=== PATIENT | male | born 1955 | race Caucasian/White ===

== ENCOUNTER 2016-10-07 09:53 | Emergency (ER) | payer MEDICARE, OTHER ==
[2016-10-07 10:08] VITALS: BP 135/86
[2016-10-07] MEDS ORDERED: Lidocaine 1% 50 ML MDV INJECT ONE (10:13)
[2016-10-07] MEDS ORDERED: Acetaminophen/HYDROcodone 325-5 MG Tab PO ONE (10:21)
[2016-10-07] MEDS ORDERED: Cephalexin 500 MG Cap PO ONE ×2 (10:46→12:33)
--- NOTE | 2016-10-07 10:56 | EDM.PDOC ---
ED HPI GENERAL MEDICAL PROBLEM - General Chief Complaint: Laceration Stated Complaint: LEFT MIDDLE FINGER LACERATION Time Seen by Provider: 10/07/16 10:11 Source of Information: Reports: Patient, RN Notes Reviewed - History of Present Illness INITIAL COMMENTS - FREE TEXT/NARRATIVE: 60-year-old male comes in with left finger injury. Working with some wire out in his garage and some how caught the tip of the finger with the wire with resultant quite severe flap laceration distal tip left middle finger. No other injury from this incident. To the best of his knowledge she is up-to-date with tetanus immunization. The wire Was clean. He does have a lot of pain associated with this injury. Of note patient is a cardiac transplant patient having received heart transplant about 7 years ago doing relatively well with that. he is on immunosuppressant therapy. Left Middle Hand Pain Score (Numeric/FACES): 8 - Related Data Allergies Allergy/AdvReac Type Severity Reaction Status Date / Time Sulfa (Sulfonamide Allergy unknown Verified 10/07/16 10:02 Antibiotics) Home Meds: Home Meds Aspirin [Ecotrin] 81 mg PO DAILY 09/14/14 [History] Calcium Carbonate [Calcium] PO BID 09/14/14 [History] Cholecalciferol (Vitamin D3) [Vitamin D3] PO DAILY 09/14/14 [History] Clotrimazole [Clotrimazole 1%] TOP BID 09/14/14 [History] Docusate Sodium 100 mg PO TID 09/14/14 [History] Gabapentin [Neurontin] 300 mg PO TID 09/14/14 [History] Lisinopril 5 mg PO DAILY 09/14/14 [History] Morphine 15 mg PO BID 09/14/14 [History] Multivit/Ophth Ared 1 cap PO BID 09/14/14 [History] Mycophenolate Sodium [Mycophenolic Acid] PO BID 09/14/14 [History] [place]-3/DHA/Epa/Fish Oil [Fish Oil] 1,000 mg PO TID 09/14/14 [History] Omeprazole 40 mg PO DAILY 09/14/14 [History] Pravastatin Sodium [Pravastatin (Pravachol)] 20 mg PO DAILY 09/14/14 [History] Sertraline HCl 100 mg PO DAILY 09/14/14 [History] Tacrolimus 2 mg PO BID 09/14/14 [History] Terbinafine HCl [Athlete's Foot] TOP BID 09/14/14 [History] Warfarin [Coumadin] 09/14/14 [History] amLODIPine Besylate [Amlodipine Besylate] PO DAILY 09/14/14 [History] hydrALAZINE HCl [Hydralazine HCl] 50 mg PO TID 09/14/14 [History] oxyCODONE HCl [Oxycodone HCl] 7.5 mg PO Q4H PRN 09/14/14 [History] Cephalexin 500 mg PO QID #20 capsule 10/07/16 [Rx] Mupirocin Oint [Bactroban Oint] 22 gm TOP TID #1 tube 10/07/16 [Rx] Past Medical History 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 Other Gastrointestinal History: Biliary Calculus, Benign neoplasm of Stomach, Colonic Polyps, Tubular Adenoma, Generalized Abdominal Pain, Other Genitourinary History: Impotence of organic origin, - Past Surgical History Other Cardiovascular Surgeries/Procedures: Cardiac Transplant 09/2009, Thromboendarterectomy, Social & Family History - Tobacco Use Smoking Status *Q: Never Smoker - Caffeine Use Caffeine Use: Reports: None - Recreational Drug Use Recreational Drug Use: No ED ROS GENERAL - Review of Systems Review Of Systems: See Below Constitutional: Reports: No Symptoms HEENT: Reports: No Symptoms Respiratory: Denies: Shortness of Breath Cardiovascular: Denies: Chest Pain GI/Abdominal: Denies: Abdominal Pain, Nausea, Vomiting Musculoskeletal: Reports: Other (Severe flap laceration distal left middle finger) ED EXAM, SKIN/RASH Exam: See Below General Appearance: Alert, Moderate Distress Head: Atraumatic Neck: Supple Respiratory/Chest: No Respiratory Distress Extremities: Other (2.5 cm flap laceration volar aspect distal left middle finger). No: Joint Swelling (, Tenderness or deformity) Neurological: Other (Sensation decreased to the distal flap, otherwise intact) ED SKIN PROCEDURES - Laceration/Wound Repair Left Middle Finger Lac/Wound length In cm: 2.5 Appearance: Other (Flap) Distal NVT: Other (Sensation is mildly decreased distal area of flap injury) Anesthetic Type: Local Local Anesthesia - Lidocaine (Xylocaine): 1% Plain Skin Prep: Chlorhexidine (Hibiciens), Saline Suture Size: 3-0 Suture Type: Nylon Course - Vital Signs Last Recorded V/S: Last Vital Signs Temp 98.0 F 10/07/16 10:02 Pulse 81 10/07/16 10:02 Resp 16 10/07/16 10:02 BP 135/86 10/07/16 10:02 Pulse Ox 95 10/07/16 10:02 - Orders/Labs/Meds Meds: Medications Discontinued Medications Generic Name Dose Route Start Last Admin Trade Name Lazaro PRN Reason Stop Dose Admin Hydrocodone Bitart/Acetaminophen 1 tab 10/07/16 10:21 10/07/16 10:27 [place] 325-5 Mg PO 10/07/16 10:22 1 tab ONETIME ONE Administration Cephalexin 500 mg 10/07/16 10:46 10/07/16 12:02 Keflex PO 10/07/16 10:47 500 mg ONETIME ONE Administration Cephalexin 500 mg 10/07/16 12:33 10/07/16 12:42 Keflex PO 10/07/16 12:34 500 mg ONETIME ONE Administration Lidocaine HCl 50 ml 10/07/16 10:13 10/07/16 10:28 Xylocaine 1% INJECT 10/07/16 10:14 50 ml ONETIME ONE Administration - Re-Assessments/Exams Free Text/Narrative Re-Assessment/Exam: 10/07/16 14:01 Patient was given a hydrocodone 08/01/24 for pain, that has helped him. Departure - Departure Time of Disposition: 11:20 Disposition: Home, Self-Care 01 Condition: Fair Clinical Impression: Finger laceration Qualifiers: Encounter type: initial encounter Finger: middle finger Damage to nail status: unspecified Foreign body presence: without foreign body Laterality: left Qualified Code(s): S61.213A - Laceration without foreign body of left middle finger without damage to nail, initial encounter - Discharge Information Prescriptions: Cephalexin 500 mg PO QID #20 capsule Mupirocin Oint [Bactroban Oint] 22 gm TOP TID #1 tube Instructions: Laceration Care, Adult Referrals: Preeti Quevedo DO [Primary Care Provider] - Forms: ED Department Discharge Additional Instructions: Laceration care instructions, stitches out in 9-10 days, there is no charge to have those taken out at our [facility] clinic, call [phone] for appointment. Cephalexin antibiotic 4 times daily for 5 days or until gone, have finger rechecked any sign of infection.
== END 2016-10-07 12:22 | disposition home or self-care (01) ==
LOC: JD.ED 09:53
DX: S61.213A Laceration without foreign body of left middle finger without damage to nail, initial encounter (principal); Z88.2 Allergy status to sulfonamides; Z79.82 Long term (current) use of aspirin; Z79.899 Other long term (current) drug therapy; W26.8XXA Contact with other sharp object(s), not elsewhere classified, initial encounter
CPT/HCPCS: 12001; 99283; A9270

== ENCOUNTER 2020-05-22 10:28 | Emergency (ER) | payer MEDICARE, OTHER ==
[2020-05-22] MEDS ORDERED: Sodium Chloride 0.9% 10 ML Syringe FLUSH PRN (10:38)
[2020-05-22 11:13] VITALS: PULSE 97
--- NOTE | 2020-05-22 11:25 | CT ---
CT cervical spine Technique: Multiple axial sections were obtained from above C1 inferiorly to the bottom of T3. Reconstructed coronal and sagittal images were obtained. Comparison: No prior cervical spine imaging is available. Findings: Mild disc space narrowing at C3-4 with prominent anterior osteophytes. Moderate disc space narrowing at C4-5 with anterior osteophytes. Moderate disc space narrowing at C5-6 with anterior osteophytes. Mild disc space narrowing C6-7 with anterior osteophytes. Anterior osteophytes are also noted at C2-3. Vertebral body heights are maintained. There is slight calcification noted within the posterior bulging disc at C3-4. Severe left-sided neural foraminal stenosis noted at C3-4 with mild to moderate right-sided neural foraminal stenosis. Moderate bilateral neural foraminal stenosis is noted at C4-5. Diffuse posterior disc bulge is noted causing central canal stenosis. Diffuse posterior disc bulge is noted at C5-6 causing mild central canal stenosis. Left neural foramina is patent. Mild to moderate right-sided neural foraminal stenosis is seen. Other neural foramina are patent. No fracture is appreciated. No abnormal subluxation is appreciated. Scattered degenerative apophyseal change is seen. Degenerative spurring is noted within the uncovertebral joints at C3-4, C4-5 and C5-6. Visualized lung apices are clear. Impression: 1. Degenerative change as noted above. 2. No acute fracture or abnormal subluxation is appreciated on CT study of the cervical spine. Diagnostic code #3
--- NOTE | 2020-05-22 11:26 | CT ---
Head CT Technique: Multiple axial sections through the brain were obtained. Intravenous contrast was not utilized. Reconstructed coronal and sagittal images were obtained. Comparison: No prior intracranial imaging is available. Findings: Soft tissue hematoma is seen within the scalp of the posterior right parietal region. Ventricles along with basal cisterns and sulci over the convexities are mildly prominent. Very minimal areas of diminished density is noted within the periventricular white matter and basal ganglia compatible with small vessel ischemic demyelination change. Atherosclerotic calcification is seen within the carotid siphon and vertebral vessels. There is no evidence of intracranial hemorrhage being seen. No midline shift or mass-effect is appreciated. Bone window settings were reviewed. The visualized mastoid sinuses and paranasal sinuses show nothing acute. Chronic appearing mucosal thickening is seen within the maxillary sinuses. No acute calvarial abnormality is appreciated. Impression: 1. Soft tissue hematoma within the posterior right parietal scalp. 2. Mild senescent change as noted above. Mild chronic mucosal thickening within the inferior maxillary sinuses. 3. No acute intracranial abnormality is appreciated. Diagnostic code #2
--- NOTE | 2020-05-22 11:28 | CR ---
Chest: Portable view of the chest was obtained. Comparison: Prior chest x-ray of 01/11/13. Heart is enlarged. Sternotomy is noted. Spinal fixation device is present. Left shoulder prosthesis is seen. Lung markings shows minimal congestion. No acute parenchymal change is seen. Slight chronic pleural thickening on the right side. Surgical clips are seen within the right axillary region. Impression: 1. Findings are suspicious for minimal CHF. 2. Other findings as noted above. No other acute abnormality is appreciated. Diagnostic code #3
--- NOTE | 2020-05-22 11:30 | CR ---
Pelvis: AP view of the pelvis was obtained. Comparison: Prior pelvis exam of 02/28/11. Bilateral hip prostheses are noted. Heterotopic bone is noted superior to both greater trochanters which appear chronic. Osteopenia is present. Vascular calcification is noted. No acute abnormality is appreciated. Impression: 1. Chronic findings as noted above. 2. Nothing acute is appreciated on the AP pelvis study. Diagnostic code #2
[2020-05-22 13:00] VITALS: BP 133/88
--- NOTE | 2020-05-22 13:04 | EDM.PDOC ---
ED HPI GENERAL MEDICAL PROBLEM - General Chief Complaint: Trauma Stated Complaint: [facility] Time Seen by Provider: 05/22/20 10:37 Source of Information: Reports: Patient, RN Notes Reviewed - History of Present Illness INITIAL COMMENTS - FREE TEXT/NARRATIVE: 64yr old male fell down a ladder off of the edge of a roof unto a deck. He was intending to get up on the roof of a home, he and the ladder slipped with he and the ladder going down. He believes he was up at a height of about 12 to 15 feet. He was tangled up in the ladder lying on steps of the deck when his came out to help him. No Loc. He did hit the back of his head. Mild Smith only. He has chronic neck and back discomfort and does have moderate neck discomfort. Mild low back pain but no worse than usual. Mild R hip pain. He has an interesting cardiac hx with hx of cardiac transplant about 10 1/2 yrs ago. He is on aspirn, chronic blood thinner therapy in addition to all of his other usual meds. EMS reported bleeding from back of head, with that and height of fall this was called a trauma code prior to patient arrival. He had no chest pain at time of exam and no difficulty breathing. No abd., hip or pelvic pain. Treatments REGULATORY LEADER: Reports: Cervical Collar, IV/IO Posterior Head Pain Score (Numeric/FACES): 5 - Related Data Allergies Allergy/AdvReac Type Severity Reaction Status Date / Time Sulfa (Sulfonamide Allergy unknown Verified 10/07/16 10:02 Antibiotics) Home Meds: Home Meds Aspirin [Ecotrin EC] 81 mg PO DAILY 09/14/14 [History] Calcium Carbonate [Calcium] PO BID 09/14/14 [History] Cholecalciferol (Vitamin D3) [Vitamin D3] PO DAILY 09/14/14 [History] Clotrimazole [Clotrimazole 1%] TOP BID 09/14/14 [History] Docusate Sodium 100 mg PO TID 09/14/14 [History] Gabapentin [Neurontin] 300 mg PO TID 09/14/14 [History] Lisinopril 5 mg PO DAILY 09/14/14 [History] Morphine 15 mg PO BID 09/14/14 [History] Multivit/Ophth Ared 1 cap PO BID 09/14/14 [History] Mycophenolate Sodium [Mycophenolic Acid] PO BID 09/14/14 [History] [place]-3/DHA/Epa/Fish Oil [Fish Oil] 1,000 mg PO TID 09/14/14 [History] Omeprazole 40 mg PO DAILY 09/14/14 [History] Pravastatin Sodium [Pravastatin (Pravachol)] 20 mg PO DAILY 09/14/14 [History] Sertraline HCl 100 mg PO DAILY 09/14/14 [History] Tacrolimus 2 mg PO BID 09/14/14 [History] Warfarin [Coumadin] 09/14/14 [History] amLODIPine Besylate [Amlodipine Besylate] PO DAILY 09/14/14 [History] hydrALAZINE HCl [Hydralazine HCl] 50 mg PO TID 09/14/14 [History] oxyCODONE HCl [Oxycodone HCl] 7.5 mg PO Q4H PRN 09/14/14 [History] terbinafine HCL [Athlete's Foot] TOP BID 09/14/14 [History] Mupirocin Oint [Bactroban Oint] 22 gm TOP TID #1 tube 10/07/16 [Rx] cephALEXin [Cephalexin] 500 mg PO QID #20 capsule 10/07/16 [Rx] Past Medical History 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 Other Gastrointestinal History: Biliary Calculus, Benign neoplasm of Stomach, Colonic Polyps, Tubular Adenoma, Generalized Abdominal Pain, Other Genitourinary History: Impotence of organic origin, - Past Surgical History Other Cardiovascular Surgeries/Procedures: Cardiac Transplant 09/2009, Thromboendarterectomy, Social & Family History - Tobacco Use Tobacco Use Status *Q: Never Tobacco User - Caffeine Use Caffeine Use: Reports: None - Recreational Drug Use Recreational Drug Use: No Review of Systems - Review of Systems Review Of Systems: See Below Constitutional: Reports: No Symptoms Eyes: Reports: No Symptoms Nose: Reports: No Symptoms Mouth/Throat: Reports: No Symptoms Respiratory: Denies: Shortness of Breath, Pleuritic Chest Pain Cardiovascular: Denies: Chest Pain GI/Abdominal: Denies: Abdominal Pain, Nausea, Vomiting Musculoskeletal: Reports: Neck Pain, Back Pain, Leg Pain (mild R hip). Denies: Shoulder Pain Skin: Reports: No Symptoms Neurological: Reports: Headache. Denies: Numbness, Tingling, Trouble Speaking ED EXAM, GENERAL - Physical Exam Exam: See Below General Appearance: Alert, Mild Distress Eye Exam: Bilateral Eye: PERRL Ears: Normal External Exam Nose: Normal Inspection Throat/Mouth: Normal Inspection Head: Atraumatic. No: Facial Swelling, Facial Tenderness Neck: Supple, Tender Midline, Other (wearing C collar) Respiratory/Chest: No Respiratory Distress, Lungs Clear, Normal Breath Sounds, Chest Non-Tender Cardiovascular: Regular Rate, Rhythm GI/Abdominal: Soft, Non-Tender. No: Guarding, Rebound Extremities: Normal Inspection, Normal Range of Motion, Other (pelvis nontender, mild tenderness R hip., no visible bruising) Skin Exam: Warm, Dry, Normal Color. No: Ecchymosis Course - Vital Signs Last Recorded V/S: Last Vital Signs Temp 97.6 F 05/22/20 12:45 Pulse 97 05/22/20 10:30 Resp 22 H 05/22/20 12:45 BP 133/88 05/22/20 12:45 Pulse Ox 92 L 05/22/20 12:45 - Orders/Labs/Meds Orders: Active Orders 24 hr Category Date Time Status Peripheral IV Insertion Pediatric [OM.PC] Routine Oth 05/22/20 10:38 Ordered Labs: Laboratory Tests 05/22/20 05/22/20 Range/Units 10:34 10:34 WBC 5.16 (4.23-9.07) K/mm3 RBC 4.43 L (4.63-6.08) M/mm3 Hgb 12.9 L (13.7-17.5) gm/dl Hct 39.2 L (40.1-51.0) % MCV 88.5 (79.0-92.2) fl MCH 29.1 (25.7-32.2) pg MCHC 32.9 (32.2-35.5) g/dl RDW Std Deviation 46.1 H (35.1-43.9) fL Plt Count 179 (163-337) K/mm3 MPV 9.4 (9.4-12.3) fl Neut % (Auto) 68.0 H (34.0-67.9) % Lymph % (Auto) 20.2 L (21.8-53.1) % [place] % (Auto) 8.5 (5.3-12.2) % Eos % (Auto) 2.3 (0.8-7.0) Baso % (Auto) 0.4 (0.1-1.2) % Neut # (Auto) 3.51 (1.78-5.38) K/mm3 Lymph # (Auto) 1.04 L (1.32-3.57) K/mm3 [place] # (Auto) 0.44 (0.30-0.82) K/mm3 Eos # (Auto) 0.12 (0.04-0.54) K/mm3 Baso # (Auto) 0.02 (0.01-0.08) K/mm3 Sodium 138 (136-145) mEq/L Potassium 4.4 (3.5-5.1) mEq/L Chloride 103 (98-107) mEq/L Carbon Dioxide 23 (21-32) mEq/L Anion Gap 16.4 H (5-15) BUN 20 H (7-18) mg/dL Creatinine 1.3 (0.7-1.3) mg/dL Est Cr Clr Drug Dosing TNP Estimated GFR (MDRD) 55 (>60) mL/min BUN/Creatinine Ratio 15.4 (14-18) Glucose 244 H (80-115) mg/dL Calcium 9.7 (8.5-10.1) mg/dL Total Bilirubin 0.8 (0.2-1.0) mg/dL AST 20 (15-37) U/L ALT 35 (16-63) U/L Alkaline Phosphatase 43 L (46-116) U/L Total Protein 7.1 (6.4-8.2) g/dl Albumin 3.7 (3.4-5.0) g/dl Globulin 3.4 gm/dL Albumin/Globulin Ratio 1.1 (1-2) Meds: Medications Discontinued Medications Generic Name Dose Route Start Last Admin Trade Name Freq PRN Reason Stop Dose Admin Sodium Chloride 10 ml 05/22/20 10:38 05/22/20 11:00 Saline Flush FLUSH 10 ml ASDIRECTED PRN Administration Keep Vein Open - Re-Assessments/Exams Free Text/Narrative Re-Assessment/Exam: 05/22/20 17:24 CT of head, no acute findings. CT of neck no fx, CT pelvis and hips, no fx. Vitals remained stable., Pt offered pain medication but he declined. Neuro status remained nl, Mild to moderate Smith, discharge instr. as documented. Departure - Departure Time of Disposition: 13:01 Disposition: Home, Self-Care 01 Condition: Fair Clinical Impression: Fall, Scalp contusion, Scalp abrasion, Neck strain, Contusion, hip - Discharge Information Instructions: Facial or Scalp Contusion, [id number], Muscle Strain, Easy-to-R ead, Abrasion, [id number] Referrals: Asmita Sandoval MD [Primary Care Provider] - Forms: ED Department Discharge Additional Instructions: Rest, frequent ice packs today areas of discomfort. Than alternate with ice and heat as needed. Pressure dressing to head until tomorrow. Than antibiotic ointment 2 to 3 times daily for a few days. Tylenol q 6 to 8 hr if needed. Follow up clinic as needed. Return to ED as needed if symptoms worsening in any way. Sepsis Event Note (ED) - Evaluation Sepsis Screening Result: No Definite Risk - Focused Exam Vital Signs: Vital Signs Temp Pulse Resp BP Pulse Ox 05/22/20 12:45 97.6 F 22 H 133/88 92 L 05/22/20 10:30 96.9 F 97 19 134/77 96 - My Orders Last 24 Hours: My Active Orders 05/22/20 10:38 Peripheral IV Insertion Pediatric [OM.PC] Routine - Assessment/Plan Last 24 Hours: My Active Orders 05/22/20 10:38 Peripheral IV Insertion Pediatric [OM.PC] Routine
== END 2020-05-22 13:12 | disposition home or self-care (01) ==
LOC: JD.ED 10:28
DX: S16.1XXA Strain of muscle, fascia and tendon at neck level, initial encounter (principal); S70.01XA Contusion of right hip, initial encounter; Z79.82 Long term (current) use of aspirin; Z79.899 Other long term (current) drug therapy; Z79.01 Long term (current) use of anticoagulants; Z88.2 Allergy status to sulfonamides; W11.XXXA Fall on and from ladder, initial encounter
CPT/HCPCS: 36415; 70450; 70450-26; 71045; 71045-26; 72125; 72125-26; 72170; 72170-26; 80053; 85025; 99284; 99284-25